=== PATIENT | male | born 1985 ===

== ENCOUNTER 2021-08-10 14:39 | Emergency (ER) | payer OTHER ==
[2021-08-10 14:50] VITALS: BP 138/76
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
== END 2021-08-10 17:00 | disposition home or self-care (01) ==
LOC: ED 14:39
DX: R07.81 Pleurodynia (principal); M25.551 Pain in right hip; V49.49XA Driver injured in collision with other motor vehicles in traffic accident, initial encounter; Y93.89 Activity, other specified; Y92.89 Other specified places as the place of occurrence of the external cause; Y99.8 Other external cause status
CPT/HCPCS: 99283